=== PATIENT | female | born 1980 ===

== ENCOUNTER 2021-12-10 23:02 | Emergency (ER) | payer MEDICAID ==
[~2021-12-10] VITALS: Ht 167.6 cm; Wt 110.9 kg
[2021-12-11 00:14] VITALS: BP 123/77
== END 2021-12-11 02:48 | disposition home or self-care (01) ==
LOC: ER 23:04
DX: R45.851 Suicidal ideations (principal); F32.A Depression, unspecified; Z88.2 Allergy status to sulfonamides
CPT/HCPCS: 99285